=== PATIENT | male | born 1980 | race Caucasian/White ===

== ENCOUNTER 2019-05-30 10:42 | Emergency (ER) | payer OTHER ==
[~2019-05-30] VITALS: Ht 180.3 cm; Wt 63.6 kg
[2019-05-30 12:30] VITALS: BP 130/77
== END 2019-05-30 13:28 | disposition left against medical advice (07) ==
LOC: EMS 10:44
DX: F10.10 Alcohol abuse, uncomplicated (principal); F17.210 Nicotine dependence, cigarettes, uncomplicated; F12.90 Cannabis use, unspecified, uncomplicated; F15.90 Other stimulant use, unspecified, uncomplicated

== ENCOUNTER 2019-05-30 14:09 | Emergency (ER) | payer OTHER ==
[~2019-05-30] VITALS: Ht 180.3 cm; Wt 63.6 kg
[2019-05-30 17:39] VITALS: BP 122/86
== END 2019-05-30 18:20 | disposition home or self-care (01) ==
LOC: EMS 14:10
DX: F10.10 Alcohol abuse, uncomplicated (principal); F17.210 Nicotine dependence, cigarettes, uncomplicated; F12.90 Cannabis use, unspecified, uncomplicated; F15.90 Other stimulant use, unspecified, uncomplicated